=== PATIENT | female | born 1985 | race Caucasian/White ===

== ENCOUNTER 2017-05-08 09:42 | Emergency (ER) | payer OTHER ==
[~2017-05-08] VITALS: Ht 152.4 cm; Wt 95.5 kg
[2017-05-08 09:50] VITALS: TEMP 36.4; Ht 152.4 cm; Wt 95.5 kg
[2017-05-08] MEDS ORDERED: PROCHLORPERAZINE 5 MG/ML 2 ML VIAL IV STA (10:01)
[2017-05-08] MEDS ORDERED: KETOROLAC TROMETHAMINE 30 MG/ML VIAL IV STA (10:01)
[2017-05-08] MEDS ORDERED: DiphenhydrAMINE HCL 50 MG/ML VIAL IV STA (10:01)
[2017-05-08] MEDS ORDERED: SODIUM CHLORIDE 0.9% 1000ML 1,000 ML IV STA (10:01)
--- NOTE | 2017-05-08 10:04 | EMERGENCY ROOM VISIT NOTE ---
History Report prepared by [place]: Danielle Damon Under the Supervision of: Dr. Dereje Chavez M.D. First contact with patient: 09:54 Chief Complaint: HEAD PAIN Stated Complaint: PAIN IN HEAD AND MOUTH History of Present Illness The patient is a 31 year old female who presents to the Emergency Room with complaints of constant head pain beginning last night. 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 She reports that she has been treated for migraines previously with 800mg of ibuprofen but the medication did not help her today. She notes that the headache came on gradually last night and has gradually worsened. The patient explains that the pain is in the back of her neck and head and goes into her jaw on the left side. She reports that she is having some blurry vision and notes that her symptoms today are not unusual for a migraine they but they are more severe. She denies any tooth pain, abdominal pain, and chance of . Source of History: patient Onset: last night Position: head Timing: constant, worsening Associated Symptoms: + neck pain, No abdominal pain Note: Pt complains of jaw pain and blurry vision. She denies any tooth pain. Review of Systems See HPI for pertinent positives & negatives. A total of 10 systems reviewed and were otherwise negative. Past Medical & Surgical Medical Problems: (1) Cancer Family History No pertinent family history stated. Social History Smoking Status: Never Smoker Marital Status: single Occupation Status: employed Current/Historical Medications No Active Prescriptions or Reported Meds Allergies Coded Allergies: Amoxicillin (Unverified Allergy, Severe, ., 05/08/17) Clavulanic Acid (Unverified Allergy, Severe, ., 05/08/17) Red Dye (Unverified Allergy, Severe, HIVES, 05/08/17) Physical Exam Vital Signs Date Time Temp Pulse Resp B/P (MAP) Pulse Ox O2 Delivery O2 Flow Rate FiO2 05/08/17 11:12 68 16 125/71 98 Room Air 05/08/17 09:50 36.4 83 18 127/66 97 Room Air Physical Exam GENERAL: Patient is a healthy-appearing well-nourished female HEAD: Normocephalic atraumatic EYES: Ocular movements intact pupils equal and react to light OROPHARYNX mucous membranes are moist no exudates present no erythema or edema present NECK: Supple no nuchal rigidity CHEST: Good equal expansion LUNGS: Clear and equal to auscultation CARDIAC: Normal S1 and S2 ABDOMEN: Soft nontender no guarding BACK: No CVA tenderness EXTREMITIES: No pain upon palpation normal muscle strength in all groups no clubbing cyanosis or edema NEURO: Patient is following commands and answering questions appropriately. Alert and oriented x3 Cranial Nerves 2-12 grossly intact. No evidence of meningitis or encephalitis on exam. Medical Decision & Procedures Medications Administered Medications (Trade) Dose Ordered Sig/Cosme Route Start Time Stop Time Status Last Admin Dose Admin Sodium Chloride 1,000 ml @ 999 mls/hr Q1H1M STAT IV 05/08/17 10:01 05/08/17 11:01 DC 05/08/17 10:17 999 MLS/HR Ketorolac Tromethamine (Toradol Inj) 30 mg NOW STAT IV 05/08/17 10:01 05/08/17 10:03 DC 05/08/17 10:17 30 MG Prochlorperazine Edisylate (Compazine Inj) 10 mg NOW STAT IV 05/08/17 10:01 05/08/17 10:03 DC 05/08/17 10:17 10 MG Diphenhydramine HCl (Benadryl Inj) 50 mg NOW STAT IV 05/08/17 10:01 05/08/17 10:03 DC 05/08/17 10:17 50 MG Dexamethasone Sodium Phosphate (Decadron Inj) 10 mg NOW ONCE IV 05/08/17 10:15 05/08/17 10:16 DC 05/08/17 10:17 10 MG Haloperidol Lactate (Haldol Inj) 2.5 mg NOW STAT IV 05/08/17 10:57 05/08/17 10:58 DC 05/08/17 11:17 2.5 MG Benztropine Mesylate (Cogentin Inj) 1 mg NOW STAT IV 05/08/17 10:57 05/08/17 10:58 DC 05/08/17 11:19 1 MG ED Course 0954: Past medical records reviewed. The patient was evaluated in room C4. A complete history and physical examination was performed. 1001: Benadryl 50mg IV, Compazine Inj 10mg IV, Toradol Inj 30mg IV, Sodium Chloride 1000 ml @ 999 mls/hr IV. 1015: Decadron Inj 10mg IV. 1057: Congentin Inj 1mg IV, Haldol Inj 2.5mg IV. 1107: Upon reexamination the patient is doing well. I discussed results and treatment plan with the patient. She verbalizes agreement and understanding. The patient is ready for discharge. Medical Decision Differential diagnosis: Etiologies such as migraine headache, meningitis, sinusitis, CO exposure, ICH, SAH, infection, tumor, headache, sinus thrombosis, arterial dissection, as well as others were entertained. This is a 31-year-old female who presents emergency department complaining of headache. The patient reports this is what of her chronic headaches that she has had headaches similar to this in the past. She normally goes to [place] for her headaches however she is up here visiting friends. She has no evidence of meningitis or encephalitis on examination and she has had multiple imaging studies of her head. Based on these findings an IV was established, patient given normal saline bolus, Toradol, Compazine, Benadryl. Repeat examination revealed some improvement patient's symptoms. The patient requested more pain medication and therefore was given Haldol and Cogentin. Repeat examination revealed improvement patient's symptoms. I do feel that the patient is able to be discharged home however she was strongly cautioned to return if she develops severe headache and neck pain and fevers. Patient was in agreement with the treatment plan. Medication Reconcilliation Current Medication List: was personally reviewed by me Blood Pressure Screening Patient's blood pressure: Normal blood pressure Blood pressure disposition: Did not require urgent referral Impression Primary Impression: Headache Scribe Attestation The scribe's documentation has been prepared under my direction and personally reviewed by me in its entirety. I confirm that the note above accurately reflects all work, treatment, procedures, and medical decision making performed by me. Departure Information Dispostion Home / Self-Care Prescriptions No Active Prescriptions or Reported Meds Referrals No Doctor, Assigned (PCP) Forms HOME CARE DOCUMENTATION FORM, IMPORTANT VISIT INFORMATION, WORK / SCHOOL INSTRUCTIONS Patient Instructions Headache Pain, My [facility] Additional Instructions Follow up with DR Prince's office or Neurologist at home NEED follow up with Dentist Return if you develop severe headpain or fevers You have been examined and treated today on an emergency basis only. This is not a substitute for, or an effort to provide, complete comprehensive medical care. It is impossible to recognize and treat all injuries or illnesses in a single emergency department visit. It is therefore important that you follow up closely with [facility]. Call as soon as possible for an appointment. Thank you for your time and consideration. I look forward to speaking with you again soon. Please don't hesitate to call us if you have any questions. Problem Qualifiers Primary Impression: Headache Headache type: unspecified Headache chronicity pattern: acute headache Intractability: not intractable Qualified Codes: R51 - Headache
[2017-05-08] MEDS ORDERED: DEXAMETHASONE SOD INJ 10 MG/ML VIAL IV ONE (10:15)
[2017-05-08] MEDS ORDERED: HALOPERIDOL LACTATE 5 MG/ML 1 ML VIAL IV STA (10:57)
[2017-05-08] MEDS ORDERED: BENZTROPINE MESYLATE 1 MG/ML 2 ML AMP IV STA (10:57)
[2017-05-08 11:12] VITALS: BP 125/71; PULSE 68; O2SAT 98
== END 2017-05-08 11:30 | disposition home or self-care (01) ==
LOC: C.EDB 09:47 → C.EDC 11:30
DX: R51 Headache (principal); Z85.9 Personal history of malignant neoplasm, unspecified